=== PATIENT | female | born 1985 | race Caucasian/White ===

== ENCOUNTER 2018-03-19 04:12 | Inpatient (IN) ==
[2018-03-19] MEDS ORDERED: Sod Chloride 0.9% Inj 1,000 ML IV.SIG ONE (04:29)
[2018-03-19] MEDS ORDERED: Morphine Sulfate Inj 2 MG/ML Vial IV.PUSH ONE (04:30)
--- NOTE | 2018-03-19 04:34 | ED ---
HPI General Chief Complaint: Abdominal Pain Stated Complaint: Abd cramps x 2 days Time Seen by Provider: 03/19/18 04:22 Source: patient Mode of arrival: ambulatory Limitations: no limitations History of Present Illness HPI narrative: Patient is a 32-year-old female with history of appendectomy, ovarian cyst, presents to the emergency room with complaints of abdominal pain. Patient reports that for the past 2 days, she has had lower abdominal cramping. Patient reports that the cramping has been persistent, reports that initially the cramping started her right upper quadrant, and reports that now is located to her lower abdomen. Patient reports nausea with no vomiting with her symptoms. Denies any constipation or diarrhea. Patient reports that she has had ovarian cyst in the past the pain is more severe than that. Patient denies any vaginal discharge or bleeding. Reports that she did have a vaginal cycle in February but it was shorter than normal. Patient does not use any contraceptives. Patient endorses that nothing makes the pain better or worse. Patient reports concerns that she woke up abdominal cramping. MD complaint: Reports abdominal pain Onset (ago): day(s) (2 days) Pain Consistency: constant Location: Reports LLQ and RLQ Severity: moderate Severity scale (1-10): 4 Quality: Reports cramping Radiation: Reports RUQ Migration to: Reports no migration Relieving factors: nothing Exacerbating factors: nothing Associated symptoms: Reports nausea Related Data Previous Rx's Medication Instructions Recorded nitrofurantoin monohyd/m-cryst 100 mg PO BID 7 Days #14 cap 03/19/18 [Macrobid] Allergies Allergy/AdvReac Type Severity Reaction Status Date / Time No Known Allergies Allergy Verified 03/19/18 04:27 Review of Systems ROS: all other systems reviewed are negative PMFSH History History Provided By: Patient Medical History Medical History Patient denies medical problems (Acute) Surgical History Surgical History Hx of appendectomy (Acute) Social History Social History Substance History: No History of Abuse Second Hand Smoke Exposure: Yes Smoking Status: Current every day smoker Tobacco Type: Cigarettes How Often Do You Have a Drink Containing Alcohol: Monthly or less Recent Travel in [facility] within the Last 8 Weeks: No Recent Out of Country Travel within the Last 8 Weeks: No Exam Narrative Exam Narrative: GENERAL: Mild distress SKIN: Focused skin assessment warm/dry. HEAD: Atraumatic. Normocephalic. EYES: Pupils equal and round. No scleral icterus. No injection or drainage. ENT: No nasal bleeding or discharge. Mucous membranes pink and moist. NECK: Trachea midline. No JVD. CARDIOVASCULAR: Tachycardic. No murmur appreciated. RESPIRATORY: No accessory muscle use. Clear to auscultation. Breath sounds equal bilaterally. GASTROINTESTINAL: Abdomen soft, mildly tender to lower abdomen, nondistended. Hepatic and splenic margins not palpable. : Pelvic exam performed with RN at bedside, patient with mild yellow discharge , no cmt or adnexal tenderness MUSCULOSKELETAL: No obvious deformities. No clubbing. No cyanosis. No edema. NEUROLOGICAL: Awake and alert. No obvious cranial nerve deficits. Motor grossly within normal limits. Normal speech. PSYCHIATRIC: Appropriate mood and affect; insight and judgment normal. Course Initial Documented Vital Signs Temperature 99.6 F 03/19/18 04:17 Pulse Rate 125 H 03/19/18 04:17 Respiratory Rate 18 03/19/18 04:17 Blood Pressure 132/64 03/19/18 04:17 Pulse Oximetry 97 03/19/18 04:17 Last Documented Vital Signs Temperature 99.6 F 03/19/18 04:17 Pulse Rate 108 H 03/19/18 04:56 Respiratory Rate 18 03/19/18 04:56 Blood Pressure 123/78 03/19/18 04:56 Pulse Oximetry 98 03/19/18 04:56 Medical Decision Making [facility] Narrative Medical decision making narrative: During the course of the patients emergency department visit, the patients history, examination, and differential diagnosis were reviewed with the patient. The patient was placed on a unix manager with oximetry and frequent blood pressure monitoring. The patient had an IV access obtained and blood work sent for analysis. The patient was initially provided IVF as well as IV morphine for pain control The patients laboratory studies were reviewed and remarkable for WBC 15.3, hemoglobin 13.6, hematocrit 40.3, platelets 310 Sodium 129, potassium 3.1, chloride 92, BUN 5, creatinine 0.75, T bili 1.6 Beta hCG quant is less than 1 UA is positive for 40 ketones, small occult blood, positive nitrites, small leuk esterase, and 20 white blood cells, urine culture was ordered Patient was given a dose of IV Rocephin for treatment of UTI, her potassium was repleted. Clue cells negative, trichomonas negative, yeast, none seen Pelvic ultrasound shows a large cystic mass in the right adnexa which appears to be related to either inflammatory processes tubo-ovarian abscess versus a neoplasm, given her leukocytosis with left shift and acuity of symptoms, patient with most likely a tubo-ovarian abscess. Call was made to [facility] acute care surgeon to review case. I did discuss case with Dr. Rodriguez who is acute care surgeon, requests that I start her on Levaquin as well as Flagyl -understands that she has also received a dose of IV Rocephin for treatment of a UTI. Request transfer to [facility] and admission to medicine service Case reviewed with Dr. Aguayo - donently refuses patient to service if she has no other medical complaints. Reviewed case with Dr. Reyes - will accept pt to their service Medical Screen Exam Complete: Yes Emergency Medical Condition: Yes Differential Diagnosis Differential Diagnosis: , ovarian cyst, ovarian torsion, gastritis, gastroenteritis, constipation, cervicitis, UTI Lab Data Result diagrams: 03/19/18 04:40 03/19/18 04:40 POC Results POC Urine Results Negative Lab Results 03/19/18 03/19/18 03/19/18 Range/Units 04:40 04:40 04:40 CBC w Diff Auto diff final WBC 15.3 H (4.0-11.0) th/mm3 RBC 4.58 (4.00-5.30) mil/mm3 Hgb 13.6 (11.6-15.3) gm/dL Hct 40.3 (35.0-46.0) % MCV 88.1 (80.0-100.0) fL MCH 29.7 (27.0-34.0) pg MCHC 33.8 (32.0-36.0) % RDW 12.3 (11.6-17.2) % Plt Count 310 (150-450) th/mm3 MPV 8.0 (7.0-11.0) fL Neut % (Auto) 86.3 H (16.0-70.0) % Lymph % (Auto) 9.6 (9.0-44.0) % [place] % (Auto) 3.5 (0.0-8.0) % Eos % (Auto) 0.2 (0.0-4.0) % Baso % (Auto) 0.4 (0.0-2.0) % Neut # (Auto) 13.2 H (1.8-7.7) th/mm3 Lymph # (Auto) 1.5 (1.0-4.8) th/mm3 [place] # (Auto) 0.5 (0.0-0.9) th/mm3 Eos # (Auto) 0.0 (0.0-0.4) th/mm3 Baso # (Auto) 0.1 (0.0-0.2) th/mm3 WBC Differential . Differential Comment . Sodium 129 L (136-145) meq/L Potassium 3.1 L (3.5-5.1) meq/L Chloride 92 L (98-107) meq/L Carbon Dioxide 27.2 (21.0-32.0) meq/L Anion Gap 10 (5-15) meq/L BUN 5 L (7-18) mg/dL Creatinine 0.75 (0.50-1.00) mg/dL Estimated GFR Greater than 89 (>89) mL/min Random Glucose 104 (74-106) mg/dL Calcium 9.1 (8.5-10.1) mg/dL Total Bilirubin 1.6 H (0.2-1.0) mg/dL AST 18 (15-37) U/L ALT 26 (10-53) U/L Alkaline Phosphatase 69 (45-117) U/L Total Protein 8.3 H (6.4-8.2) g/dL Albumin 3.6 (3.4-5.0) g/dL Beta HCG, Quant Less than 1 (0-5) mIU/mL Urine Color [place] H (Yellw/Straw) Urine Clarity Slightly cloudy (Clear) Urine pH 5.0 (5.0-8.5) Ur Specific [place] Greater/equal 1.030 (1.002-1.035) Urine Protein Trace (Neg-Trace) mg/dL Urine Glucose (UA) Negative (Negative) mg/dL Urine Ketones 40 H (Negative) mg/dL Urine Occult Blood Small H (Negative) Urine Nitrate Positive H (Negative) Urine Bilirubin Negative (Negative) Urine Urobilinogen 0.2 (Less than 2) mg/dL Ur Leukocyte Esterase Small H (Negative) Urine RBC 0-3 (0-3) /hpf Urine WBC 9-20 H (0-5) /hpf Ur Squamous Epith Cells Greater than 10 H (0-5) /hpf Urine Bacteria Moderate H (None) /hpf Micro UA Comment Culture indicated Ur Microscopic Review Microscopic reviewed Urine Culture Comments Culture indicated Clue Cells (Wet Prep) (None Seen) Trichomonas (Wet Prep) (None Seen) Yeast (Wet Prep) (None Seen) 03/19/18 Range/Units 05:25 CBC w Diff WBC (4.0-11.0) th/mm3 RBC (4.00-5.30) mil/mm3 Hgb (11.6-15.3) gm/dL Hct (35.0-46.0) % MCV (80.0-100.0) fL MCH (27.0-34.0) pg MCHC (32.0-36.0) % RDW (11.6-17.2) % Plt Count (150-450) th/mm3 MPV (7.0-11.0) fL Neut % (Auto) (16.0-70.0) % Lymph % (Auto) (9.0-44.0) % [place] % (Auto) (0.0-8.0) % Eos % (Auto) (0.0-4.0) % Baso % (Auto) (0.0-2.0) % Neut # (Auto) (1.8-7.7) th/mm3 Lymph # (Auto) (1.0-4.8) th/mm3 [place] # (Auto) (0.0-0.9) th/mm3 Eos # (Auto) (0.0-0.4) th/mm3 Baso # (Auto) (0.0-0.2) th/mm3 WBC Differential Differential Comment Sodium (136-145) meq/L Potassium (3.5-5.1) meq/L Chloride (98-107) meq/L Carbon Dioxide (21.0-32.0) meq/L Anion Gap (5-15) meq/L BUN (7-18) mg/dL Creatinine (0.50-1.00) mg/dL Estimated GFR (>89) mL/min Random Glucose (74-106) mg/dL Calcium (8.5-10.1) mg/dL Total Bilirubin (0.2-1.0) mg/dL AST (15-37) U/L ALT (10-53) U/L Alkaline Phosphatase (45-117) U/L Total Protein (6.4-8.2) g/dL Albumin (3.4-5.0) g/dL Beta HCG, Quant (0-5) mIU/mL Urine Color (Yellw/Straw) Urine Clarity (Clear) Urine pH (5.0-8.5) Ur Specific [place] (1.002-1.035) Urine Protein (Neg-Trace) mg/dL Urine Glucose (UA) (Negative) mg/dL Urine Ketones (Negative) mg/dL Urine Occult Blood (Negative) Urine Nitrate (Negative) Urine Bilirubin (Negative) Urine Urobilinogen (Less than 2) mg/dL Ur Leukocyte Esterase (Negative) Urine RBC (0-3) /hpf Urine WBC (0-5) /hpf Ur Squamous Epith Cells (0-5) /hpf Urine Bacteria (None) /hpf Micro UA Comment Ur Microscopic Review Urine Culture Comments Clue Cells (Wet Prep) None seen (None Seen) Trichomonas (Wet Prep) None seen (None Seen) Yeast (Wet Prep) None seen (None Seen) Imaging Data Radiologist's impression: Abdomen/Pelvis/Transvag US 03/19/18 04:29 CONCLUSION: 1. Large cystic mass in the right adnexa related to either inflammatory processes TOAs versus a neoplasm. 2. The visualized portion of the uterus appears grossly intact. 3. The left ovary is not seen. 4. The pelvic structures are better visualized on the CT examination. Abdomen/Pelvis CT 03/19/18 05:14 CONCLUSION: 1. Very prominent cystic mass in the left adnexa and a smaller cystic mass in the right adnexa. These could be related to processes such as tubo-ovarian abscesses. The cystic masses could also relate to very severe hydrosalpinx. Underlying neoplasm cannot be excluded but given the bilateral appearance and the surrounding induration, inflammatory condition is thought more likely. 2. Mild hepatic steatosis. Discharge Plan Discharge Disposition Patient Disposition: ED Admit(ED Internal Use Only) Discharge Condition Condition: Fair Discharge Order Discharge Orders: ED Use Only Admit Order (Routine); Ordered 03/19/18 Ordered By: Vianca Cook Discharge Details Diagnosis: UTI (urinary tract infection), Right tubo-ovarian abscess Physicians Team ED Provider: Vianca Cook Primary Care Provider: Primary Care Lore Demarco Attending Provider: Trenton Aguayo Other Providers: Byron Rodriguez Status ED Status: Admitted Patient
[2018-03-19] MEDS ORDERED: Morphine Inj 4 MG/ML Vial IV.PUSH ONE (04:47)
[2018-03-19 04:49] LABS: Bilirubin,Urine Negative (Negative); Clarity,Urine Slightly Cloudy (Clear); Glucose,Urine (UA) Negative (Negative); Leukocyte Esterase,Urine Small (Negative); Nitrite,Urine Positive (Negative); Specific Gravity,Urine Greater/Equal 1.030 (1.002-1.035); Urobilinogen,Urine 0.2 mg/dL (Less than 2)
[2018-03-19 04:50] LABS: Baso # (Auto) 0.1 th/mm3 (0.0-0.2); Baso % (Auto) 0.4 % (0.0-2.0); Eos % (Auto) 0.2 % (0.0-4.0); Hematocrit 40.3 % (35.0-46.0); Hemoglobin 13.6 gm/dL (11.6-15.3); Lymph # (Auto) 1.5 th/mm3 (1.0-4.8); Lymph % (Auto) 9.6 % (9.0-44.0); Mean Corpuscular HGB Conc 33.8 % (32.0-36.0); Mean Corpuscular Hemoglobin 29.7 pg (27.0-34.0); Mean Corpuscular Volume 88.1 fL (80.0-100.0); Mono # (Auto) 0.5 th/mm3 (0.0-0.9); Mono % (Auto) 3.5 % (0.0-8.0); Neut # (Auto) 13.2 th/mm3 (1.8-7.7); Neut % (Auto) 86.3 % (16.0-70.0); Platelet Count 310 th/mm3 (150-450); Red Blood Count 4.58 mil/mm3 (4.00-5.30); Red Cell Distribution Width 12.3 % (11.6-17.2); White Blood Count 15.3 th/mm3 (4.0-11.0)
[2018-03-19 04:54] LABS: Color,Urine Orange (Yellw/Straw)
[2018-03-19 04:55] LABS: Bacteria,Urine Moderate /hpf; RBC,Urine 0-3 /hpf (0-3); Squamous Epithelial Cell,Urine Greater than 10 /hpf (0-5)
[2018-03-19 04:57] LABS: Chloride 92 meq/L (98-107); Potassium 3.1 meq/L (3.5-5.1); Sodium 129 meq/L (136-145)
[2018-03-19 05:00] LABS: Albumin 3.6 g/dL (3.4-5.0); Anion Gap 10 meq/L (5-15); Calcium 9.1 mg/dL (8.5-10.1); Carbon Dioxide 27.2 meq/L (21.0-32.0); Glucose,Random 104 mg/dL (74-106)
[2018-03-19 05:01] LABS: Blood Urea Nitrogen 5 mg/dL (7-18)
[2018-03-19 05:03] LABS: Alanine Aminotransferase 26 U/L (10-53); Aspartate Aminotransferase 18 U/L (15-37)
[2018-03-19 05:04] LABS: Glomerular Filtration Rate Greater Than 89 mL/min (>89)
[2018-03-19 05:05] LABS: Total Protein 8.3 g/dL (6.4-8.2)
[2018-03-19 05:06] LABS: Alkaline Phosphatase 69 U/L (45-117)
[2018-03-19] MEDS ORDERED: Ketorolac Inj 30 MG/ML (IVP) Vial IV.PUSH ONE (06:40)
--- NOTE | 2018-03-19 07:03 | US ---
EXAM DATE: 03/19/2018 6:37 AM EST AGE/SEX: 32 years / Female INDICATIONS: Pelvic pain. CLINICAL DATA: This is the patient's initial encounter. Patient reports that signs and symptoms have been present for 2 days and indicates a pain score of 7/10. MEDICAL/SURGICAL HISTORY: . No known medical history. Appendectomy. COMPARISON: [facility], CT ABDOMEN & PELVIS W CONTRAST, 03/19/2018. . MEASUREMENTS: Uterus:__12.1 x 7.5x 7.5 cm Endometrial Stripe:__5 mm Right Ovary:__ 3.9 x 2.7 x 2.3 cm Left Ovary:__ . Not visualized. FINDINGS: Uterus: The uterus is incompletely visualized on this ultrasound. The anatomy was confusing secondar y to the large cystic mass in the right adnexa. Endometrial Stripe: The endometrial stripe displays homogeneous echotexture. Right Ovary: There is a large complex cystic structure seen in the right adnexa measuring at least 1 1.7 x 7.8 cm. This has septations. Left Ovary: Not visualized. Fluid: No free fluid. Other: None. CONCLUSION: 1. Large cystic mass in the right adnexa related to either inflammatory processes TOAs versus a neop lasm. 2. The visualized portion of the uterus appears grossly intact. 3. The left ovary is not seen. 4. The pelvic structures are better visualized on the CT examination. Electronically signed by: Romero Chandler MD Board Certified Radiologist 03/19/2018 7:02 AM EST
--- NOTE | 2018-03-19 07:15 | CT ---
EXAM DATE: 03/19/2018 6:38 AM EST AGE/SEX: 32 years / Female INDICATIONS: Right lower quadrant pain. CLINICAL DATA: This is the patient's initial encounter. Patient reports that signs and symptoms have been present for 2 days and indicates a pain score of 8/10. MEDICAL/SURGICAL HISTORY: None. Appendectomy. ORAL CONTRAST: No oral contrast ingested. RADIATION DOSE: 18.13 CTDI (mGy) COMPARISON: [facility], US PELVIC COMP W DOPLR & TV, 03/19/2018. . TECHNIQUE: Multiple contiguous axial images were obtained through the abdomen and pelvis following b olus infusion of 100 ml Omnipaque 350 (iohexol) nonionic water-soluble contrast as a single exam do se. No oral contrast ingested. Using automated exposure control and adjustment of the mA and/or kV a ccording to patient size, radiation dose was kept as low as reasonably achievable to obtain optimal d iagnostic quality images. DICOM format image data is available electronically for review and compari son. FINDINGS: Lower Lungs: There is increased density at the posterior lower lobes bilaterally likely related to at electasis. Liver: There is mild decreased attenuation to the liver. No focal hepatic lesions are seen. The gallb ladder is unremarkable. Spleen: Homogeneous density without enlargement. Pancreas: Unremarkable without mass or calcification. Kidneys: Normal in size and shape. No evidence of mass or hydronephrosis. Adrenal Glands: Unremarkable. Aorta: The aorta and proximal iliac vessels are grossly unremarkable without aneurysmal dilation. Bowel/Mesentery: The bowel loops are grossly unremarkable. The cecum and sigmoid colon have a normal configuration. The appendix appears normal. Abdominal Wall: Intact. Retroperitoneum: No evidence of adenopathy in the retrocrural, para-aortic, or deep pelvic regions. Bladder: Contours are smooth. Reproductive Organs: There is a large left adnexal mass measuring 11.0 x 7.2 x 9.5 cm. This is the d ominant polycystic. There is a smaller cystic mass seen at the right adnexa measuring 3.2 x 1.1 x 2.8 cm. The uterus appears grossly intact. The left adnexal mass does cause impression on the anterior a nd superior aspect of the uterus. There is induration in the fat surrounding the adnexal masses. The induration extends into the right and lower abdominal retroperitoneum. Inguinal: The inguinal region is unremarkable without evidence of adenopathy. Bony Structures: Unremarkable. CONCLUSION: 1. Very prominent cystic mass in the left adnexa and a smaller cystic mass in the right adnexa. Thes e could be related to processes such as tubo-ovarian abscesses. The cystic masses could also relate t o very severe hydrosalpinx. Underlying neoplasm cannot be excluded but given the bilateral appearance and the surrounding induration, inflammatory condition is thought more likely. 2. Mild hepatic steatosis. Electronically signed by: Romero Chandler MD Board Certified Radiologist 03/19/2018 7:13 AM EST
[2018-03-19] MEDS ORDERED: Ketorolac Inj 30 MG/ML (IVP) Vial IM PRN (13:09)
--- NOTE | 2018-03-19 19:06 | P.CONOB ---
History of Present Illness Reason for Consult: abdominal/pelvic pain/tuboovarian abscess Primary Care Physician: No Primary Care Physician Chief Complaint: acute left lower quadrant pain History of Present Illness: 32 y/o [id number], Patient present with [facility] ED with acute llq pain,dysuria. Prior history of ectopic , ? uncertain of which tube? Developed pain in left lower abdomen/pelvis that was rated 10/10 ,was brought to ED. denies N/V/D, no fever/chills. LMP @3 days ago ,was light. Para: 0 : 1 Last menstrual period: 3 days ago Review of Systems All other systems reviewed negative except as stated in HPI Constitutional: Reports fatigue, Reports lack of energy, Reports malaise, Reports weakness, Denies chills, Denies excessive sweating, Denies headache(s), Denies night sweats Eyes: Denies blurry vision, Denies change in vision Cardiovascular: Denies chest pain, Denies chest pain at rest, Denies chest pain with activity, Denies excessive sweating, Denies fainting, Denies fast heart rate, Denies foot swelling, Denies generalized swelling, Denies irregular heart rhythm, Denies leg pain with activity, Denies leg sores, Denies leg swelling, Denies lightheadedness, Denies radiating jaw, neck or arm pain, Denies rapid, pounding, or irregular heartbeat, Denies shortness of breath, Denies shortness of breath with activity, Denies shortness of breath when lying down, Denies shortness of breath causing sudden awakening, Denies slow heart rate, Denies other Respiratory: Denies change in phlegm color, Denies chest congestion, Denies cough, Denies coughing up blood, Denies excessive phlegm production, Denies pain on inspiration, Denies pain with cough, Denies shortness of breath, Denies shortness of breath with activity, Denies snoring, Denies stridor, Denies wheezing, Denies other Gastrointestinal: Reports abdominal pain, Denies belching, Denies black, tarry stools, Denies bloating, Denies bright, red blood in stools, Denies change in bowel habits, Denies constant urge to pass stool, Denies change in stools, Denies coffee ground vomit, Denies constipation, Denies cramping, Denies difficulty swallowing, Denies excessive passing of gas, Denies feeling full early, Denies heartburn, Denies incontinent of stools, Denies loose stools, Denies nausea, Denies pain with swallowing, Denies vomiting, Denies vomiting blood, Denies other Genitourinary: Reports abnormal periods, Reports abnormal vaginal bleeding, Reports bleeding between periods, Denies absent period, Denies blood in urine, Denies difficulty starting urination, Denies difficulty urinating, Denies dribbling after urination, Denies frequent nighttime urination, Denies genital itching, Denies genital lesions, Denies heavy periods, Denies hot flashes, Denies light periods, Denies nipple discharge, Denies painful intercourse, Denies painful periods, Denies painful urination, Denies pelvic pain, Denies prolapse symptoms, Denies sexual problems, Denies side pain, Denies urinary incontinence, Denies urinary urgency, Denies vaginal discharge, Denies vaginal dryness, Denies vaginal odor, Denies vaginal itching, Denies other Musculoskeletal: Denies abnormal walking, Denies back pain, Denies body aches, Denies decreased muscle mass, Denies deformity, Denies joint pain, Denies joint swelling, Denies limited joint movement, Denies loss of height, Denies muscle cramps, Denies muscle weakness, Denies neck pain, Denies numbness, Denies radiating pain into limb, Denies stiffness, Denies tingling, Denies other Skin/Breast: Denies acne, Denies bleeding lesions, Denies boil, Denies breast swelling, Denies breast skin changes, Denies breast pain, Denies breast lump, Denies change in breast shape, Denies change in hair, Denies change in skin color, Denies changing lesions, Denies dry skin, Denies excessive hair growth, Denies hair loss, Denies itching, Denies lesions, Denies nail changes, Denies new lesions, Denies nipple discharge, Denies non-healing lesions, Denies redness , Denies sensitivity to light, Denies rash, Denies skin pain, Denies skin ulcer , Denies sores, Denies stretch henning, Denies unusual bruising, Denies wounds, Denies yellowing of the skin, Denies other Neurologic: Denies abnormal hearing, Denies abnormal movements, Denies abnormal speech, Denies abnormal walking, Denies behavioral changes, Denies burning sensations, Denies confusion, Denies dizziness, Denies fainting, Denies frequent falls, Denies headache(s), Denies lack of coordination, Denies localized weakness, Denies loss of vision, Denies memory loss, Denies numbness, Denies other visual disturbances, Denies radiating pain, Denies restless legs, Denies convulsions, Denies seizure-like activity, Denies sensory deficit, Denies tingling, Denies tingling/numbness/burning sensations, Denies tremor(s), Denies unsteadiness, Denies weakness, Denies other Psychiatric: Denies abnormal sleep pattern, Denies anxiety, Denies behavioral changes, Denies change in appetite, Denies change in sex drive, Denies confusion , Denies depression, Denies difficulty concentrating, Denies hearing things others do not hear, Denies hopelessness, Denies irritability, Denies lack of enjoyment, Denies memory loss, Denies mood swings, Denies panic attacks, Denies paranoia, Denies seeing things others do not see, Denies sensing things others do not sense, Denies tactile hallucinations, Denies thoughts of hurting/killing others, Denies thoughts of hurting/killing yourself, Denies other Endocrine: Denies cold intolerance, Denies excessive sweating, Denies flushing, Denies heat intolerance, Denies increased hunger, Denies increased thirst, Denies increased urination, Denies rapid, pounding, or irregular heartbeat, Denies other Hematologic/Lymphatic: Denies easy bleeding, Denies easy bruising, Denies enlarged lymph nodes, Denies other PMFSH - History History Provided By: Patient - Medical History Medical History: Medical History (Last Updated 03/19/18 @ 19:00 by Byron Rodriguez MD) Ectopic Patient denies medical problems - Surgical History Surgical History: Surgical History (Last Reviewed 03/19/18 @ 18:46 by Byron Rodriguez MD) Hx of appendectomy - Family History Family History: Family History (Last Updated 03/19/18 @ 18:48 by Byron Rodriguez MD) Other No pertinent family history - Social History I have reviewed the patient's Social History: Yes - Tobacco History Second Hand Smoke Exposure: No Tobacco Use In Past 30 Days: Yes (1/2 pack per day) Smoking Status: Current every day smoker Tobacco Type: Cigarettes - Alcohol History How Often Do You Have a Drink Containing Alcohol: 2 to 3 times a week - Substance Use History Substance History: No History of Abuse - Travel History Recent Travel in the [place] Within the Last 8 Weeks: No Recent Travel Out of the Country Within the Last 8 Weeks: No - Immunization History Tetanus Immunization: >5 Years Hx Influenza Vaccine This Season: No Medications and Allergies Active Medications: Active Medications Ketorolac Tromethamine (Toradol Inj) 30 mg IM Q6H PRN PRN Reason: PAIN 1-10 Oxycodone/Acetaminophen (Percocet 5/325 Mg) 1 tab PO Q4H PRN PRN Reason: PAIN 3-5 Oxycodone/Acetaminophen (Percocet 5/325 Mg) 2 tab PO Q4H PRN PRN Reason: PAIN 6-10 Last Admin: 03/19/18 17:00 Dose: 2 tab Sodium Chloride (Ns Flush) 2 ml IV.FLUSH PRN PRN PRN Reason: FLUSH AFTER USING IV ACCESS Allergies Allergy/AdvReac Type Severity Reaction Status Date / Time No Known Allergies Allergy Verified 03/19/18 04:27 Exam Vital signs: Vital Signs 03/19/18 04:17 03/19/18 04:56 03/19/18 08:03 Temperature 99.6 F 98.6 F Pulse Rate 125 H 108 H 111 H Respiratory Rate 18 18 16 Blood Pressure 132/64 123/78 106/72 Pulse Oximetry 97 98 96 03/19/18 11:30 03/19/18 13:00 03/19/18 13:50 Temperature Pulse Rate 100 H 102 H Respiratory Rate 20 18 Blood Pressure 115/63 116/70 Pulse Oximetry 98 03/19/18 17:30 Temperature Pulse Rate Respiratory Rate 18 Blood Pressure Pulse Oximetry Intake & Output 03/18/18 03/19/18 03/19/18 18:59 06:59 18:59 Intake Total 1100 / 1100 650 / 650 Balance 1100 / 1100 650 / 650 Weight 82.5 kg 82.5 kg Intake: IV 1100 / 1100 250 / 250 Levaquin 750 mg Premix Inj 150 150 / 150 ML @ 100 mls/hr IV.SIG ONCE ONE Rx#:[id number] NS Inj 1,000 ML @ Wide Open IV. 1000 / 1000 SIG BOLUS ONE Rx#:[id number] Rocephin Inj 1,000 MG In NS Inj 100 / 100 100 ML @ 200 mls/hr IV.SIG ONCE ONE Rx#:[id number] Flagyl 500 MG Inj 100 ML @ 100 100 / 100 mls/hr IV.SIG ONCE ONE Rx#: [id number] Oral 400 / 400 Other: # Voids 1 Weight On Admission 82.5 kg - Constitutional no acute distress - Routine HEENT Exam Head: Present: normocephalic, atraumatic Eye: Present: EOMI, PERRL, normal accommodation ENT: Present: mucous membranes moist - Routine Neck Exam Present: supple, full ROM. Absent: lymphadenopathy, thyromegaly - Routine Chest/Breast/Axilla Exam Chest wall: Absent: tenderness - Routine Respiratory Exam Absent: accessory muscle use, decreased breath sounds, rales, rhonchi - Routine Cardiovascular Exam Present: RRR - Routine Abdominal Exam Present: soft, normoactive bowel sounds, tenderness, rebound, surgical scars. Absent: guarding, hernia - Routine Extremities Exam Present: full ROM, pulses intact. Absent: cyanosis, edema, tenderness, joint swelling - Routine Skin Exam Present: intact. Absent: erythema, rash - Routine Neurological Exam Present: alert, oriented X3 Results - Labs CBC & Chem 7: 03/19/18 04:40 03/19/18 04:40 Labs: Laboratory Results - last 24 hr 03/19/18 03/19/18 03/19/18 04:40 04:40 04:40 CBC w Diff Auto diff final WBC 15.3 H RBC 4.58 Hgb 13.6 Hct 40.3 MCV 88.1 MCH 29.7 MCHC 33.8 RDW 12.3 Plt Count 310 MPV 8.0 Neut % (Auto) 86.3 H Lymph % (Auto) 9.6 [place] % (Auto) 3.5 Eos % (Auto) 0.2 Baso % (Auto) 0.4 Neut # (Auto) 13.2 H Lymph # (Auto) 1.5 [place] # (Auto) 0.5 Eos # (Auto) 0.0 Baso # (Auto) 0.1 WBC Differential . Differential Comment . Sodium 129 L Potassium 3.1 L Chloride 92 L Carbon Dioxide 27.2 Anion Gap 10 BUN 5 L Creatinine 0.75 Estimated GFR Greater than 89 Random Glucose 104 Calcium 9.1 Total Bilirubin 1.6 H AST 18 ALT 26 Alkaline Phosphatase 69 Total Protein 8.3 H Albumin 3.6 Beta HCG, Quant Less than 1 Urine Color [place] H Urine Clarity Slightly cloudy Urine pH 5.0 Ur Specific [place] Greater/equal 1.030 Urine Protein Trace Urine Glucose (UA) Negative Urine Ketones 40 H Urine Occult Blood Small H Urine Nitrate Positive H Urine Bilirubin Negative Urine Urobilinogen 0.2 Ur Leukocyte Esterase Small H Urine RBC 0-3 Urine WBC 9-20 H Ur Squamous Epith Cells Greater than 10 H Urine Bacteria Moderate H Micro UA Comment Culture indicated Ur Microscopic Review Microscopic reviewed Urine Culture Comments Culture indicated Clue Cells (Wet Prep) Trichomonas (Wet Prep) Yeast (Wet Prep) Chlam trachomat DNA PCR N.gonorrhoeae DNA (PCR) 03/19/18 03/19/18 05:25 05:25 CBC w Diff WBC RBC Hgb Hct MCV MCH MCHC RDW Plt Count MPV Neut % (Auto) Lymph % (Auto) [place] % (Auto) Eos % (Auto) Baso % (Auto) Neut # (Auto) Lymph # (Auto) [place] # (Auto) Eos # (Auto) Baso # (Auto) WBC Differential Differential Comment Sodium Potassium Chloride Carbon Dioxide Anion Gap BUN Creatinine Estimated GFR Random Glucose Calcium Total Bilirubin AST ALT Alkaline Phosphatase Total Protein Albumin Beta HCG, Quant Urine Color Urine Clarity Urine pH Ur Specific [place] Urine Protein Urine Glucose (UA) Urine Ketones Urine Occult Blood Urine Nitrate Urine Bilirubin Urine Urobilinogen Ur Leukocyte Esterase Urine RBC Urine WBC Ur Squamous Epith Cells Urine Bacteria Micro UA Comment Ur Microscopic Review Urine Culture Comments Clue Cells (Wet Prep) None seen Trichomonas (Wet Prep) None seen Yeast (Wet Prep) None seen Chlam trachomat DNA PCR Not detected N.gonorrhoeae DNA (PCR) Not detected - Imaging Impressions Abdomen/Pelvis/Transvag US 03/19/18 04:29 CONCLUSION: 1. Large cystic mass in the right adnexa related to either inflammatory processes TOAs versus a neoplasm. 2. The visualized portion of the uterus appears grossly intact. 3. The left ovary is not seen. 4. The pelvic structures are better visualized on the CT examination. Abdomen/Pelvis CT 03/19/18 05:14 CONCLUSION: 1. Very prominent cystic mass in the left adnexa and a smaller cystic mass in the right adnexa. These could be related to processes such as tubo-ovarian abscesses. The cystic masses could also relate to very severe hydrosalpinx. Underlying neoplasm cannot be excluded but given the bilateral appearance and the surrounding induration, inflammatory condition is thought more likely. 2. Mild hepatic steatosis. Assessment and Plan - Diagnosis (1) Bilateral tubo-ovarian mass Code(s): N83.8 - Other noninflammatory disorders of ovary, fallopian tube and broad ligament Status: Acute Plan: TOA, Patient stable,discussed continued use of IV antibiotics with follow up imaging. Patient is aware that surgical or IR drainage of abscess may be necessary. Patient will stay on LEVAQUIN and FLAGYL for the next 48 hours. CBC ordered in am. Ca-125, pending, possibility of malignancy is remote. (2) Hypokalemia Code(s): E87.6 - Hypokalemia Status: Acute Plan: Replacement (3) Smoker Code(s): F17.200 - Nicotine dependence, unspecified, uncomplicated Status: Acute
[2018-03-19] MEDS: Potassium Chloride 25 MEQ Effervescent Tablet PO SCH (21:41)
[2018-03-19 23:17] LABS: Cancer Antigen 125 65.9 U/mL (0.0-30.2)
[2018-03-20 06:41] LABS: Baso % (Auto) 0.2 % (0.0-2.0); Eos # (Auto) 0.1 th/mm3 (0.0-0.4); Eos % (Auto) 0.6 % (0.0-4.0); Hematocrit 34.3 % (35.0-46.0); Hemoglobin 11.7 gm/dL (11.6-15.3); Lymph # (Auto) 1.3 th/mm3 (1.0-4.8); Lymph % (Auto) 10.3 % (9.0-44.0); Mean Corpuscular Hemoglobin 30.4 pg (27.0-34.0); Mean Corpuscular Volume 89.3 fL (80.0-100.0); Mono # (Auto) 0.7 th/mm3 (0.0-0.9); Mono % (Auto) 5.8 % (0.0-8.0); Neut # (Auto) 10.7 th/mm3 (1.8-7.7); Neut % (Auto) 83.1 % (16.0-70.0); Platelet Count 248 th/mm3 (150-450); Red Blood Count 3.84 mil/mm3 (4.00-5.30); White Blood Count 12.8 th/mm3 (4.0-11.0)
[2018-03-20 06:54] LABS: Potassium 3.6 meq/L (3.5-5.1)
[2018-03-20 07:01] LABS: Carbon Dioxide 29.9 meq/L (21.0-32.0)
[2018-03-20 07:05] LABS: Calcium 8.4 mg/dL (8.5-10.1)
[2018-03-20 07:39] LABS: Platelet Estimate Normal (Normal); Platelet Morphology Normal (Normal)
[2018-03-20] MEDS ORDERED: Acetaminophen 325 MG Tablet PO ONE (08:49)
--- NOTE | 2018-03-20 09:00 | P.PNOB ---
Progress Note: A/P (1) Bilateral tubo-ovarian mass Status: Acute Code(s): N83.8 - Other noninflammatory disorders of ovary, fallopian tube and broad ligament Current Visit: Yes Problem details: Fever persists,BC ordered; decreasing WBC, remains painful/tender. discussed continued use of antibiotics,repeat Ct of pelvis ,transfer to [facility] [place], will more than likely require IR/ CT guided drainage of TOA. (2) Hypokalemia Status: Acute Code(s): E87.6 - Hypokalemia Current Visit: Yes Problem details: resolved (3) Smoker Status: Acute Code(s): F17.200 - Nicotine dependence, unspecified, uncomplicated Current Visit: Yes - Time Spent With Patient Total time spent is greater than 50% in coordination of care (as documented) at patient's floor/unit and/or counseling patient: Subjective Interval history: HD#2, patient c/o fever/temp. overnight @103, MD was never notified. feels worse, malaise, denies N/V/D. Is due for LEVAQUIN dose now, FLAGYL was never continued. Physical Exam Vital signs: Temp Pulse Resp BP Pulse Ox 100.8 F H 122 H 20 116/69 97 03/20/18 02:22 03/20/18 00:00 03/20/18 00:00 03/20/18 00:00 03/20/18 00:00 - Constitutional no acute distress - Routine HEENT Exam Eye: Present: EOMI, PERRL, conjunctivae pink - Routine Chest/Breast/Axilla Exam Chest wall: Absent: tenderness - Routine Respiratory Exam Absent: accessory muscle use, rales, respiratory distress, rhonchi, wheezes - Routine Abdominal Exam Present: normoactive bowel sounds, tenderness (LLQ), distended, guarding, firm - Routine Extremities Exam Present: full ROM, pulses intact. Absent: cyanosis, clubbing, edema, calf tenderness, tenderness, pallor Results - Labs CBC & Chem 7: 03/20/18 06:10 03/20/18 06:10 Labs: Laboratory Results - last 24 hr 03/19/18 03/19/18 03/20/18 05:25 18:20 06:10 CBC w Diff Slide review pending WBC 12.8 H RBC 3.84 L Hgb 11.7 Hct 34.3 L MCV 89.3 MCH 30.4 MCHC 34.0 RDW 12.0 Plt Count 248 MPV 8.0 Neut % (Auto) 83.1 H Lymph % (Auto) 10.3 [place] % (Auto) 5.8 Eos % (Auto) 0.6 Baso % (Auto) 0.2 Neut # (Auto) 10.7 H Lymph # (Auto) 1.3 [place] # (Auto) 0.7 Eos # (Auto) 0.1 Baso # (Auto) 0.0 WBC Differential . Diff Scan Auto diff confirmed Differential Comment . Platelet Estimate Normal Platelet Morphology Normal Sodium Potassium Chloride Carbon Dioxide Anion Gap BUN Creatinine Estimated GFR Random Glucose Calcium CA 19-9 Antigen 12.0 CA 125 Antigen 65.9 H Chlam trachomat DNA PCR Not detected N.gonorrhoeae DNA (PCR) Not detected 03/20/18 06:10 CBC w Diff WBC RBC Hgb Hct MCV MCH MCHC RDW Plt Count MPV Neut % (Auto) Lymph % (Auto) [place] % (Auto) Eos % (Auto) Baso % (Auto) Neut # (Auto) Lymph # (Auto) [place] # (Auto) Eos # (Auto) Baso # (Auto) WBC Differential Diff Scan Differential Comment Platelet Estimate Platelet Morphology Sodium 133 L Potassium 3.6 Chloride 96 L Carbon Dioxide 29.9 Anion Gap 7 BUN 5 L Creatinine 0.79 Estimated GFR 85 L Random Glucose 111 H Calcium 8.4 L CA 19-9 Antigen CA 125 Antigen Chlam trachomat DNA PCR N.gonorrhoeae DNA (PCR) Progress Note: Quality - AMI Clinical Trial Participant: No - Stroke Contraindication Not Initiating IV-Tpa: Treatment not indicated
[2018-03-20] MEDS: Potassium Chloride 25 MEQ Effervescent Tablet PO SCH ×2 (11:09→20:56)
[2018-03-20 11:41] LABS: Activated Partial Thrombo Time 31.1 sec (23.4-31.7); Prothrombin Time 9.9 sec (9.8-11.6)
[2018-03-20] MEDS ORDERED: fentaNYL Citrate Inj 250 MCG/5 ML Ampul ONE (16:02)
[2018-03-20] MEDS ORDERED: Acetaminophen 325 MG Tablet PO PRN (20:21)
[2018-03-21 07:10] LABS: Baso % (Auto) 0.4 % (0.0-2.0); Eos # (Auto) 0.1 th/mm3 (0.0-0.4); Eos % (Auto) 1.6 % (0.0-4.0); Hematocrit 31.2 % (35.0-46.0); Hemoglobin 10.5 gm/dL (11.6-15.3); Lymph # (Auto) 0.9 th/mm3 (1.0-4.8); Lymph % (Auto) 12.4 % (9.0-44.0); Mean Corpuscular HGB Conc 33.6 % (32.0-36.0); Mean Corpuscular Hemoglobin 30.7 pg (27.0-34.0); Mean Corpuscular Volume 91.3 fL (80.0-100.0); Mono # (Auto) 0.5 th/mm3 (0.0-0.9); Neut % (Auto) 78.6 % (16.0-70.0); Platelet Count 254 th/mm3 (150-450); Red Blood Count 3.42 mil/mm3 (4.00-5.30); Red Cell Distribution Width 13.3 % (11.6-17.2); White Blood Count 7.6 th/mm3 (4.0-11.0)
--- NOTE | 2018-03-21 08:05 | CT ---
EXAM DATE: 03/20/2018 5:38 PM EST AGE/SEX: 32 years / Female INDICATIONS: Suspected tubo-ovarian abscess with worsening symptoms on antibiotics. CLINICAL DATA: This is the patient's initial encounter. Patient reports that signs and symptoms have been present for 1 day and indicates a pain score of 4/10. MEDICAL/SURGICAL HISTORY: . Appendectomy. COMPARISON: No prior exams available for comparison. SEDATION TIME (min): BIOPSY SITE: pelvis MEDICATION(S): 3mg midazolam (Versed) IV 150mcg fentanyl (Sublimaze) IV DEVICE(S): 8 Fr Skater FLUID: Total volume of 230cc of fluid was removed. . . . PROCEDURE : CT guided drainage of left pelvic fluid collection The risks, benefits and alternatives to the procedure were explained and verbal and written consent w as obtained. Using automated exposure control and adjustment of the mA and/or kV according to patient size, radiation dose was kept as low as reasonably achievable to obtain optimal diagnostic quality i mages. The site was prepped in sterile fashion. Full sterile technique was used, including cap, ma sk, sterile gloves and gown and a large sterile sheet. Hand hygiene and 2% chlorhexidine and/or beta dine/alcohol prep was utilized per protocol for cutaneous antisepsis. The skin and subcutaneous tiss ues were infiltrated with local anesthetic solution. DICOM format image data is available electronic ally for review and comparison. Using CT guidance the prescribed site was localized. Drainage was performed using the prescribed cat heter. The patient tolerated the procedure well and there were no complications. The patient tolerated the procedure well and there were no complications. The patient was sent to post anesthesia recovery in s table condition. FINDINGS: Large tubular left pelvic fluid collection consistent with history of tubo-ovarian abscess. CONCLUSION: 1. Uncomplicated CT guided drainage. Electronically signed by: Vimal Haro MD Board Certified Radiologist 03/21/2018 8:04 AM EST
[2018-03-21] MEDS: Potassium Chloride 25 MEQ Effervescent Tablet PO SCH ×2 (08:12→20:56)
--- NOTE | 2018-03-21 18:00 | P.PNOB ---
Progress Note: A/P (1) Bilateral tubo-ovarian mass Status: Acute Code(s): N83.8 - Other noninflammatory disorders of ovary, fallopian tube and broad ligament Current Visit: Yes Problem details: Fever persists,BC ordered; decreasing WBC, remains painful/tender. discussed continued use of antibiotics,repeat Ct of pelvis ,[place] [facility], will more than likely require IR/ CT guided drainage of TOA. (2) Hypokalemia Status: Acute Code(s): E87.6 - Hypokalemia Current Visit: Yes Problem details: resolved (3) Smoker Status: Acute Code(s): F17.200 - Nicotine dependence, unspecified, uncomplicated Current Visit: Yes - Time Spent With Patient Total time spent is greater than 50% in coordination of care (as documented) at patient's floor/unit and/or counseling patient: less than 15 minutes Subjective Interval history: HD#2, patient c/o fever/temp. overnight @103, MD was never notified. feels worse, malaise, denies N/V/D. Is due for LEVAQUIN dose now, FLAGYL was never continued. 03/21/18 HD #3 Alana had percutaneous drain placed with suction by Dr. Hauser yesterday with copious purulent and now serous drainage obtained. S- Feeling better and eating solid food. Tolerating drain O- No fever since perc. (was 104 at [place]) VSS abdomen soft with bowel sounds no rebound or guarding drain in LLQ with serosangenous collection in bag urine grew Klebsiella; cultures from abscess pending P- Continue IV antibiotics 24-[address] Saturday hope to avoid surgical intervention Physical Exam Vital signs: Temp Pulse Resp BP Pulse Ox 97.2 F L 83 16 114/59 L 100 03/21/18 12:00 03/21/18 12:00 03/21/18 12:00 03/21/18 12:00 03/21/18 12:00 Results - Labs CBC & Chem 7: 03/21/18 06:09 03/20/18 06:10 Labs: Laboratory Results - last 24 hr 03/21/18 06:09 WBC 7.6 RBC 3.42 L Hgb 10.5 L Hct 31.2 L MCV 91.3 MCH 30.7 MCHC 33.6 RDW 13.3 Plt Count 254 MPV 8.0 Neut % (Auto) 78.6 H Lymph % (Auto) 12.4 [place] % (Auto) 7.0 Eos % (Auto) 1.6 Baso % (Auto) 0.4 Neut # (Auto) 6.0 Lymph # (Auto) 0.9 L [place] # (Auto) 0.5 Eos # (Auto) 0.1 Baso # (Auto) 0.0 WBC Differential . Differential Comment Auto diff final - Imaging Impressions Abscess Drainage CT 03/20/18 00:00 CONCLUSION: 1. Uncomplicated CT guided drainage. Progress Note: Quality - AMI Clinical Trial Participant: No - Stroke Contraindication Not Initiating IV-Tpa: Treatment not indicated
[2018-03-22] MEDS: Potassium Chloride 25 MEQ Effervescent Tablet PO SCH ×2 (08:23→21:22)
--- NOTE | 2018-03-22 13:27 | P.PNOB ---
Progress Note: A/P (1) Bilateral tubo-ovarian mass Status: Acute Code(s): N83.8 - Other noninflammatory disorders of ovary, fallopian tube and broad ligament Current Visit: Yes Problem details: Fever persists,BC ordered; decreasing WBC, remains painful/tender. discussed continued use of antibiotics,repeat Ct of pelvis ,[place] [facility], will more than likely require IR/ CT guided drainage of TOA. (2) Hypokalemia Status: Acute Code(s): E87.6 - Hypokalemia Current Visit: Yes Problem details: resolved (3) Smoker Status: Acute Code(s): F17.200 - Nicotine dependence, unspecified, uncomplicated Current Visit: Yes - Time Spent With Patient Total time spent is greater than 50% in coordination of care (as documented) at patient's floor/unit and/or counseling patient: less than 15 minutes Subjective Interval history: HD#2, patient c/o fever/temp. overnight @103, MD was never notified. feels worse, malaise, denies N/V/D. Is due for LEVAQUIN dose now, FLAGYL was never continued. 03/21/18 HD #3 Alana had percutaneous drain placed with suction by Dr. Hauser yesterday with copious purulent and now serous drainage obtained. S- Feeling better and eating solid food. Tolerating drain O- No fever since perc. (was 104 at [place]) VSS abdomen soft with bowel sounds no rebound or guarding drain in LLQ with serosangenous collection in bag urine grew Klebsiella; cultures from abscess pending P- Continue IV antibiotics 24-[address] Saturday hope to avoid surgical intervention 03/22/18 HD #4 IV antibiotics post procedure day #2 S- Doing well with no complaint O--afebrile interval drainage in vacuum drain diminishing A-- clinical picture improving P-- CT tomorrow and drain removal if collection small enough Physical Exam Vital signs: Temp Pulse Resp BP Pulse Ox 98.2 F 61 18 129/60 96 03/22/18 12:00 03/22/18 12:00 03/22/18 12:00 03/22/18 12:00 03/22/18 12:00 Results - Labs CBC & Chem 7: 03/21/18 06:09 03/20/18 06:10 Progress Note: Quality - AMI Clinical Trial Participant: No - Stroke Contraindication Not Initiating IV-Tpa: Treatment not indicated
[2018-03-23] MEDS: Potassium Chloride 25 MEQ Effervescent Tablet PO SCH ×2 (08:44→20:57)
--- NOTE | 2018-03-23 12:54 | P.OBGPN ---
S-- Feeling much better today pain is pretty much from the drain pulling no significant drainage in the bag scant removed this am site is fine O -- NABS no rebound or guarding afebrile since drain placed A-- If CT shows adequate resolution can have drain removed and be discharged home on bactrim DS and tramadol 50 #20 motrin 800 #20
--- NOTE | 2018-03-23 13:40 | CT ---
EXAM DATE: 03/23/2018 1:33 PM EST AGE/SEX: 32 years / Female INDICATIONS: Follow up Percutaneous drainage of abscess. Physician requests evaluation to remove sly in. CLINICAL DATA: This is the patient's initial encounter. Patient reports that signs and symptoms have been present for 3 days and indicates a pain score of 0/10. MEDICAL/SURGICAL HISTORY: None. Appendectomy. RADIATION DOSE: 14.98 CTDI (mGy) COMPARISON: [facility], CT ABDOMEN & PELVIS W CONTRAST, 03/19/2018. . TECHNIQUE: Multiple contiguous axial images were obtained through the pelvis without contrast. Imag es were obtained using multiple row detector helical technique. . Using automated exposure control an d adjustment of the mA and/or kV according to patient size, radiation dose was kept as low as reasona kashif achievable to obtain optimal diagnostic quality images. DICOM format image data is available keisah ctronically for review and comparison. FINDINGS: Percutaneous drainage tube is present with tip coiled in the left side of the pelvis with mixed densi ty fluid surrounding it maximum diameter of 7.9 cm on maximum diameter measured 10.4 cm previously. T here is of the examination has not changed. CONCLUSION: 1. Reduction in size of the previously seen abscess in the left side of the pelvis adjacent to the u terus with residual mixed density fluid collection remaining surrounding the drainage tube. Electronically signed by: Roney Bridges MD Board Certified Radiologist 03/23/2018 1:39 PM EST
--- NOTE | 2018-03-23 17:25 | P.OBGPN ---
Alana had her CT scan which shows diminution of collection from 10 to 7 cm. It appears loculated and of intermediate density. Discussed options with Dr. Hauser and decided to leave drain and attempt to push TPA through the drain into the collection in the morning. Should this break up adhesions and allow drainage to resume, she may avoid surgery. If not significant change, the drain can be used as a way to locate the abscess during a scope or open procedure to resolve the remaining collection. Will sign out to Dr. Rodriguez in the morning. Discharge is cancelled.
[2018-03-24] MEDS: Potassium Chloride 25 MEQ Effervescent Tablet PO SCH ×2 (08:09→20:54)
--- NOTE | 2018-03-24 12:22 | P.OBGPN ---
HD#6, TOA ,left, diminished drainage from catheter placed on 03/20/18. TPA infused today in an attempt to clear catheter. Patient remains afebrile, WBc normal on 03/21/18. resolving UTI . C/O pain associated with percutaneous catheter site. Notes less pelvic /abdominal pain. EXAM:AVSS; Abd. soft,nl bs, .tender near drain site, mild erythema. A/P: Discussed trial of TPA to allow drain to decompress remaining left pyosalpinx/hyrosalpinx. clinically patient has improved, normal WBC, afebrile. Discussed possibility of surgical intervention, laparoscopic salpingectomy, drainage of hyrosalpinx. Will await response from TPA trial.
[2018-03-24 14:18] LABS: Baso % (Auto) 0.5 % (0.0-2.0); Eos # (Auto) 0.3 th/mm3 (0.0-0.4); Eos % (Auto) 3.5 % (0.0-4.0); Hematocrit 38.4 % (35.0-46.0); Hemoglobin 12.7 gm/dL (11.6-15.3); Lymph # (Auto) 1.9 th/mm3 (1.0-4.8); Lymph % (Auto) 24.7 % (9.0-44.0); Mean Corpuscular Hemoglobin 30.2 pg (27.0-34.0); Mean Corpuscular Volume 91.5 fL (80.0-100.0); Mean Platelet Volume 7.4 fL (7.0-11.0); Mono # (Auto) 0.6 th/mm3 (0.0-0.9); Mono % (Auto) 7.7 % (0.0-8.0); Neut % (Auto) 63.6 % (16.0-70.0); Platelet Count 391 th/mm3 (150-450); Red Cell Distribution Width 13.2 % (11.6-17.2); White Blood Count 7.8 th/mm3 (4.0-11.0)
[2018-03-25 08:17] VITALS: BP 95/50; PULSE 59; RESP 16; TEMP 97.5; O2SAT 94
[2018-03-25] MEDS: Potassium Chloride 25 MEQ Effervescent Tablet PO SCH (08:48)
--- NOTE | 2018-03-25 08:54 | P.PNOB ---
Progress Note: A/P (1) Bilateral tubo-ovarian mass Status: Acute Code(s): N83.8 - Other noninflammatory disorders of ovary, fallopian tube and broad ligament Current Visit: Yes Problem details: Fever persists,BC ordered; decreasing WBC, remains painful/tender. discussed continued use of antibiotics,repeat Ct of pelvis ,transfer to [facility] [place], will more than likely require IR/ CT guided drainage of TOA. (2) Hypokalemia Status: Acute Code(s): E87.6 - Hypokalemia Current Visit: Yes Problem details: resolved (3) Smoker Status: Acute Code(s): F17.200 - Nicotine dependence, unspecified, uncomplicated Current Visit: Yes - Time Spent With Patient Total time spent is greater than 50% in coordination of care (as documented) at patient's floor/unit and/or counseling patient: Subjective Interval history: HD#2, patient c/o fever/temp. overnight @103, MD was never notified. feels worse, malaise, denies N/V/D. Is due for LEVAQUIN dose now, FLAGYL was never continued. 03/21/18 HD #3 Alana had percutaneous drain placed with suction by Dr. Hauser yesterday with copious purulent and now serous drainage obtained. S- Feeling better and eating solid food. Tolerating drain O- No fever since perc. (was 104 at [facility]) VSS abdomen soft with bowel sounds no rebound or guarding drain in LLQ with serosangenous collection in bag urine grew Klebsiella; cultures from abscess pending P- Continue IV antibiotics 24-[address] Saturday hope to avoid surgical intervention 03/22/18 HD #4 IV antibiotics post procedure day #2 S- Doing well with no complaint O--afebrile interval drainage in vacuum drain diminishing A-- clinical picture improving P-- CT tomorrow and drain removal if collection small enough 03/25/18 HD#7 S- Doing ok, no c/o F/C/N/V/d, O-AVSS Minimal drainage from catheter overnight; WBC normal drain removed, wound site C/D/I, A- TOA / hydrosalpinx,left, s/p percutaneous drainage,with residual fluid, sterile cultures. improved clinically. Patient has been afebrile with normal WBC for 4 days .UTI ,resolved. P- Discussed resolving left TOA with chronic hydrosalpinx, Acute infection resolving, discussed discharge home today with continued oral antibiotics and return visit as outpatient. Counseled on outpatient operative laparoscopic salpingectomy to remove chronic hydrosalpinx once acute inflammatory component has diminished,patient desires future fertility. Patient stable,discharge on doxycycline and flagyl . RTO in 1 week. Physical Exam Vital signs: Temp Pulse Resp BP Pulse Ox 97.5 F L 59 L 16 95/50 L 94 L 03/25/18 08:00 03/25/18 08:00 03/25/18 08:00 03/25/18 08:00 03/25/18 08:00 - Constitutional no acute distress - Routine Chest/Breast/Axilla Exam Chest wall: Absent: tenderness - Routine Respiratory Exam Absent: accessory muscle use, decreased breath sounds - Routine Abdominal Exam Present: soft, normoactive bowel sounds, distended, rebound, guarding, wound ( drain site clean,no drainage), drain (catheter removed at bedside). Absent: firm, rigid - Routine Extremities Exam Present: full ROM, pulses intact. Absent: cyanosis, clubbing, edema, calf tenderness, palpable cord, tenderness - Routine Neurological Exam Present: alert, oriented X3 - Routine Psychiatric Exam Present: normal affect, normal thought process Results - Labs CBC & Chem 7: 03/24/18 13:33 03/20/18 06:10 Labs: Laboratory Results - last 24 hr 03/24/18 13:33 WBC 7.8 RBC 4.20 Hgb 12.7 Hct 38.4 MCV 91.5 MCH 30.2 MCHC 33.0 RDW 13.2 Plt Count 391 D MPV 7.4 Neut % (Auto) 63.6 Lymph % (Auto) 24.7 [place] % (Auto) 7.7 Eos % (Auto) 3.5 Baso % (Auto) 0.5 Neut # (Auto) 5.0 Lymph # (Auto) 1.9 [place] # (Auto) 0.6 Eos # (Auto) 0.3 Baso # (Auto) 0.0 WBC Differential . Differential Comment Auto diff final Progress Note: Quality - AMI Clinical Trial Participant: No - Stroke Contraindication Not Initiating IV-Tpa: Treatment not indicated
== END 2018-03-25 12:17 | disposition home or self-care (01) | DRG 758 ==
LOC: PHED 04:12 → PHEDA 07:46 → PH3 13:00 → N07 03-20 10:43
PROVIDERS: ADMIT Obstetrics & Gynecology; ATTEND Obstetrics & Gynecology
CPT/HCPCS: 72192; 74177; 75989; 76830; 76856; 76937; 80048; 80053; 81001; 84702; 84703; 85025; 85610; 85730; 86301; 86304; 87040; 87070; 87077; 87086; 87186; 87205; 87210; 87491; 87591; 90761; 90765; 90775; 93975; 96361; 96365; 96375; 99285; C1729; C1769; J0696; J1885; J1956; J2250; J2270; J3010; J7030; Q9967